=== PATIENT | female | born 1985 | race Caucasian/White ===

== ENCOUNTER → 2019-07-01 10:22 | Outpatient (CLI) | payer OTHER, SELFPAY ==
--- NOTE | ~2019-07-01 | US_ITS ---
US OB transvaginal 07/01/2019 10:52 Indication: . Positive beta-hCG. History of infertility. Procedure: High-resolution Limited early obstetrical ultrasound using transvaginal technique Comparison: No prior studies for comparison. Findings: Uterus measures 11.8 x 7.1 x 7.7 cm. Endometrium is thickened measuring 2.1 cm. No intraute rine is identified. No evidence for gestational sac or pole. Right ovary measures 5.5 x 3.9 x 4.7 cm and contains 2 cysts, largest measuring 2.9 cm maximum dimension. Left ovary is unrem arkable measuring 2.2 x 1.1 x 2.4 cm. Impression: 1: No evidence for intrauterine . Endometrium is thickened. Differential diagnosis includes early intrauterine , failed and ectopic . Recommend follow-up with serial quantitative beta-hCG levels and ultrasound as clinically indicated. 2: Left ovary and cysts, largest measuring 2.9 cm. Reviewed, dictated and finalized at location A. Impression: 1: No evidence for intrauterine . Endometrium is thickened. Differenti al diagnosis includes early intrauterine , failed and ectopi c . Recommend follow-up with serial quantitative beta-hCG levels and u ltrasound as clinically indicated. 2: Left ovary and cysts, largest measuring 2.9 cm.
== END ==
PROVIDERS: PCP Family Medicine; Visit Provider Obstetrics & Gynecology Gynecology
DX: O09.01 Supervision of pregnancy with history of infertility, first trimester (principal); Z3A.00 Weeks of gestation of pregnancy not specified; N83.202 Unspecified ovarian cyst, left side
CPT/HCPCS: 76817

== ENCOUNTER → 2019-07-15 09:40 | Outpatient (CLI) | payer OTHER, SELFPAY ==
--- NOTE | ~2019-07-15 | US_ITS ---
EXAMINATION: US OB transvaginal DATE: 07/15/2019 10:12 INDICATION: First trimester dating TECHNIQUE: Real-time pelvic transabdominal and transvaginal ultrasound was performed. COMPARISON: 07/01/2019 FINDINGS: The uterus measures 12.2 x 6.8 x 9.4 cm. There is an intrauterine gestational sac. Two tin y hypoechoic areas are seen adjacent to the gestational sac which measure up to 9 mm. A yolk sac is i dentified. pole is too small for reliable heart rate measurement. The crown rump length m easures 4 mm , which correlates with an estimated gestational age of 6 weeks and 0 day(s) (+/-) 4 day (s). The left ovary is not visualized however no left adnexal abnormality is seen. The right ovary measure s 6.4 x 4.0 x 6.1 cm. There is no free fluid in the pelvis. IMPRESSION: 1. Live intrauterine with an estimated gestational age of 6 weeks and 0 day(s) (+/-) 4 day( s) and an estimated delivery date of 03/09/2020. 2. Tiny subchorionic hematomas. Reviewed, dictated and finalized at location B. IMPRESSION: 1. Live intrauterine with an estimated gestational age of 6 weeks and 0 day(s) (+/-) 4 day(s) and an estimated delivery date of 03/09/2020. 2. Tiny subchorionic hematomas.
== END ==
PROVIDERS: PCP Family Medicine; Visit Provider Obstetrics & Gynecology Gynecology
DX: Z36.9 Encounter for antenatal screening, unspecified (principal); Z3A.00 Weeks of gestation of pregnancy not specified
CPT/HCPCS: 76817

== ENCOUNTER → 2019-07-29 10:33 | Outpatient (CLI) | payer OTHER, SELFPAY ==
--- NOTE | ~2019-07-29 | US_ITS ---
EXAMINATION: US OB transvaginal DATE: 07/29/2019 11:00 INDICATION: Subchorionic hematoma follow-up. First trimester. TECHNIQUE: Real-time transvaginal pelvic ultrasound was performed. COMPARISON: ultrasound 07/15/19 FINDINGS: The uterus measures 10.9 x 7.8 x 9.3 cm. There is an intrauterine gestational sac. A yolk sac is marcella ntified. The crown rump length measures 1.4 cm, which correlates with an estimated gestational age of 7 weeks and 4 day(s) (+/-) 5 day(s). heart motion is identified measuring 170 beats per minute (bpm) by M-mode Doppler. There is a small subchorionic hematoma measuring 0.8 x 1.4 x 0.7 cm. The ovaries are not visualized. There is no free fluid in the pelvis. IMPRESSION: 1. Single living intrauterine gestation with estimated date of delivery of 03/09/2020 based on the u ltrasound from 07/15/2019. 2. Small subchorionic hematoma. Reviewed, dictated and finalized at location A. IMPRESSION: 1. Single living intrauterine gestation with estimated date of delivery of based on the ultrasound from 07/15/2019. 2. Small subchorionic hematoma.
== END ==
PROVIDERS: Visit Provider Obstetrics & Gynecology Gynecology
DX: O36.8910 Maternal care for other specified fetal problems, first trimester, not applicable or unspecified (principal); Z3A.00 Weeks of gestation of pregnancy not specified
CPT/HCPCS: 76817

== ENCOUNTER 2019-08-12 11:03 | Outpatient (CLI) | payer OTHER, SELFPAY ==
--- NOTE | ~2019-08-12 | US_ITS ---
EXAMINATION: US OB <=14 wk fetus w TV DATE: 08/12/2019 12:07 INDICATION: Subchorionic hematoma. TECHNIQUE: Real-time pelvic ultrasound utilizing both a transvaginal and transabdominal probe was pe rformed. The interpreting radiologist was not present for the study. COMPARISON: 07/29/19 FINDINGS: The uterus measures 10.0 x 7.5 x 9.2 cm. There is an intrauterine gestational sac. A single po le is identified. The crown rump length measures 3.5 cm, which is concordant with previously estimate d gestational age of 10 weeks and 0 days. heart motion is identified measuring 163 beats per mi nute (bpm) by M-mode Doppler. Slight increase in size of a now 2.6 x 1.1 x 0.9 cm hypoechoic subchori onic hematoma. The right ovary is not visualized. The left ovary measures 1.5 x 2.0 x 1.2 cm. Vascular flow identifi ed at the left ovary on color Doppler. There is a very small amount of free fluid in the pelvis. IMPRESSION: 1. Single living fetus with heart of 162 bpm. 2. Slight increase in size of a still small subchorionic hematoma. 3. Small amount of anechoic free fluid in the pelvis. Reviewed, dictated and finalized at location A.
== END 2019-08-12 11:04 | disposition home or self-care (01) ==
PROVIDERS: Visit Provider Obstetrics & Gynecology Gynecology
DX: O36.8910 Maternal care for other specified fetal problems, first trimester, not applicable or unspecified (principal)
CPT/HCPCS: 76801; 76817

== ENCOUNTER 2019-08-26 10:51 | Outpatient (CLI) | payer OTHER, SELFPAY ==
--- NOTE | ~2019-08-26 | US_ITS ---
EXAMINATION: US OB <= 14 weeks fetus DATE: 08/26/2019 11:25 INDICATION: Subchorionic hemorrhage TECHNIQUE: Real-time transabdominal and transvaginal obstetric ultrasound. FINDINGS: No prior studies for comparison. The uterus measures 17.3 x 8.9 x 10.9 cm. There is an intrauterine gestational sac, with pole i dentified. The crown rump length measures 6.0 cm. heart tones are identified measuring 166 BPM . Persistent small subchorionic hemorrhage measuring 3.6 x 1.9 x 1.4 cm IMPRESSION: 1. SL IUP with an EGA of 12 weeks, 5 days (EDC by initial ultrasound of 03/06/2020). 2: Small subchorionic hemorrhage. Reviewed, dictated and finalized at location A. IMPRESSION: 1. SL IUP with an EGA of 12 weeks, 5 days (EDC by initial ultrasound of 020). 2: Small subchorionic hemorrhage.
== END 2019-08-26 10:52 | disposition home or self-care (01) ==
PROVIDERS: PCP Family Medicine; Visit Provider Obstetrics & Gynecology Gynecology
DX: O36.8911 Maternal care for other specified fetal problems, first trimester, fetus 1 (principal); Z3A.12 12 weeks gestation of pregnancy
CPT/HCPCS: 76801

== ENCOUNTER 2019-09-09 09:30 | Outpatient (CLI) | payer OTHER, SELFPAY ==
--- NOTE | ~2019-09-09 | US_ITS ---
EXAMINATION: US OB follow up DATE: 09/09/2019 10:03 INDICATION: Subchorionic hematoma during early second trimester of . TECHNIQUE: Real-time ultrasound of the pelvis was performed. The interpreting radiologist was not pre sent for the study. COMPARISON: 08/26/2019 FINDINGS: The uterus measures 18.5 x 9.6 x 13.0 cm. There is a single living fetus in transverse lie. The plac enta is posterior and appears to extend across the internal cervical os. Persistent 2.1 x 2.0 x 1.9 c m subchorionic hematoma underlying the left inferior margin of the placenta. heart rate is 171 beats per minute (bpm). The amniotic fluid volume is subjectively normal. The ovaries are not visuali zed. The following biometric data were obtained: BPD: 2.6 cm -> 14 weeks 4 days Head circumference: 10.7 cm -> 15 weeks 1 days Abdominal circumference: 8.6 cm -> 14 weeks 6 days Femur length: 1.4 cm -> 14 weeks 0 days These measurements are concordant. Head circumference to abdominal circumference ratio: 1.24 (normal range 1.06-1.38). Estimated weight: 100 g (+/-) 15 g. or 4 oz. (+/-) 1 oz. IMPRESSION: 1. Single living fetus in breech presentation with heart rate of 171 bpm. 2. Placenta previa with small subchorionic hematoma. 3. Estimated weight is 73rd percentile by Hadlock criteria when 03/09/2020 is used as the estim ated date of delivery (JUSTA). Please correlate with clinical information or earlier ultrasounds for mo st accurate JUSTA. Reviewed, dictated and finalized at location A. IMPRESSION: 1. Single living fetus in breech presentation with heart rate of 171 bpm. 2. Placenta previa with small subchorionic hematoma. 3. Estimated weight is 73rd percentile by Hadlock criteria when 0 is used as the estimated date of delivery (JUSTA). Please correlate with clinic al information or earlier ultrasounds for most accurate JUSTA.
== END 2019-09-09 09:31 | disposition home or self-care (01) ==
PROVIDERS: PCP Family Medicine; Visit Provider Obstetrics & Gynecology Gynecology
DX: O44.02 Complete placenta previa NOS or without hemorrhage, second trimester (principal); Z3A.00 Weeks of gestation of pregnancy not specified
CPT/HCPCS: 76816

== ENCOUNTER 2019-10-14 18:15 | Inpatient (IN) | payer OTHER, SELFPAY ==
--- NOTE | ~2019-10-14 | US_ITS ---
EXAMINATION: US OB >= 14 weeks Fetus EXAM DATE: 10/14/2019 12:14 INDICATION: Subchorionic hemorrhage. Anatomy. 2nd trimester. TECHNIQUE: Pelvic obstetrical transabdominal sonogram was performed by a technologist. There are mu ltiple grayscale and Doppler images available for interpretation. Comparison is made to prior examina tion from 09/09/2019. FINDINGS: There is single fetus without heart tones, measurements corresponding to age by ultr asound of 15 weeks 5 days. No retroplacental hemorrhage identified. BIOMETRIC DATA: Biparietal diameter (BPD): 3.0cm ----------------> 15 weeks 4 days. Head circumference (HC): 11.7 cm ----------------> 15 weeks 5 days. Abdominal circumference (AC): 10.2 cm ----------> 16 weeks 1 day. Femur length (FL): 1.9 cm --------------------------> 15 weeks 4 days. These measurements are concordant. HC/AC ratio is 1.16 (The 5th -- 95th percentile range is 1.06-1.35. Estimated weight is 138 g +/- 21 g. This is the less than 3rd percentile when the currently re ported clinical gestation age 19 weeks 0 days. On previous examination heart rate was identifie d and weight was 73rd percentile. IMPRESSION: demise. Reviewed, dictated and finalized at location B. IMPRESSION: demise.
--- NOTE | 2019-10-14 18:15 | LDADM ---
This patient, Hafsa Marrero, was admitted to Labor/Delivery/Recovery 110 on 10/14/19 at 18:15. Plans for labor, pain management and were discussed with patient. Patient/family oriented to hospital policies and general routines including ID bracelet, bed and alarms, visiting hours, pain management, procedures, bathroom and other care routines, personal items, smoking policy, room service/diet and guest tray routines, infant security routines, and visiting hours. Patient/Family are encouraged to report perceived risks to care and to ask questions if they do not understand what they are told or what they should do. See OBIX for further documentation.
[2019-10-14 22:57] VITALS: BP 103/71; PULSE 112
[2019-10-14 23:15] LABS: Basophils Percent Auto 0.2 % (0.2-1.2); Eosinophils Absolute Auto 0.2 K/mm3 (0-0.3); Eosinophils Percent Auto 1.9 % (0-4.4); Hematocrit 36.2 % (37.0-47.0); Hemoglobin 11.8 g/dL (12.0-15.0); Immature Granulocyte Absolute 0.07 K/mm3 (0.00-0.031); Immature Granulocyte Percent A 0.6 % (0-0.5); Lymphocytes Percent Auto 34.5 % (18.3-44.2); Mean Corpuscular HGB Conc 32.6 g/dl (32-36); Mean Corpuscular Hemoglobin 26.3 pg (26-34); Mean Corpuscular Volume 80.6 fl (80-100); Mean Platelet Volume 10.9 fl (7.4-10.4); Monocytes Absolute Auto 0.5 K/mm3 (0.1-0.6); Monocytes Percent Auto 4.3 % (2.6-8.5); Neutrophils Absolute Auto 6.6 K/mm3 (1.3-6.7); Neutrophils Percent Auto 58.5 % (45.5-73.1); Platelet Count Result 301 k/mm3 (150-375); Red Blood Count 4.49 M/mm3 (4.2-5.4); Red Cell Distribution Width 14.8 % (11.5-14.5); White Blood Count 11.3 K/mm3 (4.5-10.0)
[2019-10-14 23:32] LABS: Glucose 136 mg/dL (65-105)
[2019-10-14 23:40] VITALS: TEMP 36.6
[2019-10-14] MEDS: MISOPROSTOL 200 MCG TABLET VAGINAL (23:40)
[2019-10-15] VITALS (18 sets, daily range): BP systolic 79–120; BP diastolic 46–72; PULSE 80–116; RESP 20; TEMP 36.7–37.1; BMI 46.5
[2019-10-15 00:13] LABS: HIV 1/2 Ab P24 Ag Result Negative (Negative)
[2019-10-15 00:17] LABS: Free T4 Free Thyroxine 0.96 ng/mL (0.78-2.19)
[2019-10-15] MEDS: OXYTOCIN 30 UNITS/NS 500 ML 30 UNITS/500 ML BAG 999 UNITS IV CONT (04:33)
[2019-10-15 07:49] LABS: Rapid Plasma Reagin Non-Reactive (NonReactive)
[2019-10-15 08:25] LABS: Amphetamine Screen Urine Negative (Negative); Barbiturate Screen Urine Negative (Negative); Benzodiazepines Screen Urine Negative (Negative); Cannabinoid Screen Urine Negative (Negative); Cocaine Screen Urine Negative (Negative); Methadone Screen Urine Negative (Negative); Opiate Screen Urine Negative (Negative); Phencyclidine Screen Urine Negative (Negative)
--- NOTE | 2019-10-15 12:11 | PC.NURSE ---
Met with Hafsa and her Jose this morning. Both parents appropriately tearful off and on, processing the loss of their baby. Burring Machine Operator visited. Share program and support presented and mother consented for f/u by Share Coordinator after discharge. Parents receptive. They shared they have a large family close by, and a strong latter-day family. Share folder of information and mementos given to family. appropriate f/u will be provided to them.
--- NOTE | 2019-10-15 17:21 | P.HP_ITS ---
Obstetrics - Admit Note Admission Note: 34y/o at 19 weeks feela demise at 15 weeks seen on anatomy scan. Patient admitted for demise. Patient seen in office by DR. Mera and admitted for IOL. record reviewed. No pertinent additions to the history and/or any subsequent changes in the physical findings that are not con sistent with the expected course of the were found. Additions to the history and/or subsequent changes in the physical findings follow. None
--- NOTE | 2019-10-15 17:23 | PM.OBPRVD ---
OB - Delivery Note Procedure Delivery date: 10/15/19 Procedure: 15 week demise Induction method: per misoprostol protocol Route of delivery: Disposition: observation Baby Weeks of gestation at delivery: 19 score one minute: 0 score five minutes: 0
[2019-10-17 21:02] LABS: Hexagonal Phase Confirm Negative (Negative); Lupus dRVVT 1:1 Mix Interpreta Not Indicated; Lupus dRVVT Screen 41 sec (<=45); PTT-LA Screen 43 sec (<=40)
[2019-10-18 04:38] LABS: Anti Cardio Antibody IgM <12 MPL (<=12); Anti Cardiolipin Antibody IgA <11 APL (<=11); Anti Cardiolipin Antibody IgG <14 GPL (<=14)
[2019-10-18 10:31] LABS: CMV IgG Antibody <0.60 U/mL (<0.60); CMV IgM Antibody <30.00 AU/mL (<30.00)
--- NOTE | 2019-10-31 12:54 | PM.OBDSVD ---
DS: Admitting Diagnosis Admitting Diagnosis Admitting Diagnosis: Missed OB - DS: Summary OB Procedures : Ultrasound OB Procedures Intrapartum: Spontaneous Vag Delivery OB Procedures: : None Peripartum Data Delivery Method: Natural Vaginal (15 week demise) Laceration description: None complications: none Time Spent with Patient Time attestation: Total time spent providing and/or coordinating discharge services: DS: Data Data Completed and Pending Completed studies during hospitalization: Pending at discharge 10/15/19 05:30 Surgical [PTH] Routine Surgical [PTH] Routine Discharge Plan Discharge Attending physician on discharge: Sarkis Bryant Consulting providers: Kenneth Richards Discharging Clinician: Sarkis Bryant Patient Disposition: Home, Self-Care Activity: may shower and pelvic rest Diet: regular Discharge Instructions: Follow-Up: Call your Provider's office for an appointment to be seen in: 1 Week [facility] to [facility] for a follow-up visit: Appointment Date/Time: at What to expect at your follow-up visit: Call [phone] if you are unable to keep your appointment time. EPISIOTOMY/PERINEAL CARE: * Until bleeding stops, use your estephania bottle after urinating * Change your pad frequently throughout the day * You may take sitz baths several times a day (fill your bathtub with warm water and soak for 20 minutes.) Do NOT bathe in the water * No tub baths until seen by your physician - You may shower BLEEDING: * Each individual will experience vaginal bleeding, but it will vary with each situation and individual woman. * Vaginal bleeding will go thru cycles-from bright red, to pinkish to a white, creamy discharge. This is considered normal. You may also experience a brownish discharge which is also normal. DIET AND NUTRITION: * Eat at least 3 regular, well-balanced meals per day: include all 4 food groups daily. * You may prefer 6 small meals. * Drink 6-8 glasses of water or non-caffeinated beverages per day. * Loss of appetite is common with loss. We encourage you to try to eat; this will help with both your physical and emotional health. ACTIVITY: * Rest as much as possible during the day. * Do not exercise or lift anything heavier than 10 pounds (such as laundry or other children.) * Avoid stairs or driving as much as possible, especially if you are taking pain medication. * Do not put anything into the vagina. No douching, tampons, or sexual activity until seen and released by your physician. * Listen to your body, and do not do what is uncomfortable or painful. EMOTIONAL HEALTH: * This is a very difficult and sad time for you and your family, friends, and other children. It may be helpful to refer to the booklets on loss that you received. * It is okay to be sad and to cry. Denial, anger, and guilt are also normal stages that you and your family may go thru during this time. Each person reaches these stages at their own pace. * Keep the lines of communication open between family and friends, and ask for help if needed. NOTIFY PHYSICIAN IF YOU HAVE ANY QUESTIONS OR IF ANY OF THE FOLLOWING SYMPTOMS OCCUR: * If your episiotomy or incision becomes red, swollen, or more painful than what you have experienced in the hospital. * If your vaginal bleeding becomes foul smelling. * If your vaginal bleeding becomes more heavy than a period or if your bleeding changes from pink to bright red. However, you may pass an occasional walnut-sized clot once or twice for the first week . * If you experience a sharp, shooting pain in you calves. * If you discover a hard, reddened area on your breast or if you experience flu-like symptoms. * If you develop a temperature of 100.4 or greater. * If you are unable to eat or sleep and take care of activities that sustain life. * If you feel any mamta
== END 2019-10-15 12:15 | disposition home or self-care (01) | DRG 779 ==
LOC: ANHLDR 19:12
PROVIDERS: Admitting Provider Obstetrics & Gynecology Gynecology; PCP Family Medicine; Visit Provider Obstetrics & Gynecology
DX: O02.1 Missed abortion (principal); Z3A.19 19 weeks gestation of pregnancy; O77.0 Labor and delivery complicated by meconium in amniotic fluid; O62.3 Precipitate labor
CPT/HCPCS: 36415; 76805; 80307; 82947; 84439; 84443; 85025; 85460; 85598; 85613; 85730; 86146; 86147; 86592; 86644; 86645; 86703; 86850; 86900; 86901; 88300; 88305; 88307; A9270; G0432; J2590; J3010